=== PATIENT | male | born 1950 | race Caucasian/White ===

== ENCOUNTER 2018-07-10 12:28 | Emergency (ER) | payer MEDICARE, OTHER ==
[~2018-07-10] VITALS: Ht 188 cm; Wt 127.0 kg
[~2018-07-10 12:28] MED LIST: ALLO300T PO; ASPI-496 PO; FURO20TA3 PO; HYDR-3653 PO; INSU100V8 SQ; LOSA50TA14 PO; METO50TA82 PO; ROSU20TA PO; VALS1TAB24 PO
--- NOTE | 2018-07-10 12:44 | NUR ---
EKG TAKEN BY THIS RN, REVIEWED BY EDMD.
[2018-07-10] MEDS ORDERED: AMLO2.5T5 PO (12:48)
[2018-07-10] MEDS ORDERED: GLIP5TAB10 PO (12:49)
--- NOTE | 2018-07-10 13:12 | NUR ---
preceptor note: pt biba, report taken from ems. pt presents to ED with c/o dizziness starting this am with associated nausea and vomiting. 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 pt a&o x 4, neuro intact, equal grasp bilaterally, face symmetrical, no drift, equal (5/5) strength to all extremities. all monitors in place. pt seen and examined by VERA Enamorado. family at bedside. awaiting head ct and labwork at this time.
[2018-07-10] MEDS ORDERED: MECLIZINE CHEWABLE 25 MG TAB ONE (13:15)
[2018-07-10 13:28] LABS: BASOPHILS # (AUTO) 0.08 x10^3/uL (0-0.1); BASOPHILS % (AUTO) 1 % (0-1); EOSINOPHILS # (AUTO) 0.15 x10^3/uL (0-0.4); EOSINOPHILS % (AUTO) 1 % (1-7); LYMPHOCYTES # (AUTO) 1.45 x10^3/uL (1-3.4); LYMPHOCYTES % (AUTO) 10 % (22-44); MD NO; MEAN CORPUSCULAR HEMOGLOBIN 31.4 pg (27.5-34.5); MEAN CORPUSCULAR HGB CONC 33.5 g/dL (33.2-36.2); MEAN CORPUSCULAR VOLUME 93.8 fL (81-97); MONOCYTES # (AUTO) 0.66 x10^3/uL (0.2-0.8); MONOCYTES % (AUTO) 4 % (2-9); NEUTROPHILS # (AUTO) 12.81 x10^3/uL (1.8-6.8); NEUTROPHILS % (AUTO) 85 % (42-75); PLATELET COUNT 268 x10^3/uL (130-400); RED BLOOD COUNT 4.52 x10^6/uL (4.38-5.82); RED CELL DISTRIBUTION WIDTH 14.6 % (9.4-14.8)
[2018-07-10] MEDS ORDERED: MECLIZINE CHEWABLE 25 MG TAB PO ONE (13:30)
[2018-07-10 13:39] LABS: ALBUMIN 3.3 g/dL (3.4-5.0); ANION GAP 5 mmol/L (5-15); CALCIUM 8.5 mg/dL (8.5-10.1); CHLORIDE 108 mmol/L (98-107); CREATININE 1.83 mg/dL (0.7-1.3)
--- NOTE | 2018-07-10 13:50 | NUR ---
pt in ct now.
--- NOTE | 2018-07-10 13:54 | NUR ---
PT BACK TO ROOM FROM CT NOW.
[2018-07-10 14:00] LABS: TROPONIN I < 0.015 ng/mL (0.000-0.045)
--- NOTE | 2018-07-10 14:13 | NUR ---
PT HAS ROOM AIR SPO2 87-90%, 2L OXYGEN APPLIED VIA NC. PT'S STATES "HE SNORES AND I THINK HE HAS SLEEP APNEA." RESPS EVEN AND UNLABORED. VERA LIMA NOTIFIED.
--- NOTE | 2018-07-10 14:20 | NUR ---
VERA LIMA AT BEDSIDE TO EXPLAIN RESULTS AND POC
--- NOTE | 2018-07-10 14:45 | NUR ---
PT RESTING ON GURNEY, RESPS EVEN AND UNLABORED. PT A&OX4, NSR ON FISH SEINER WITH NO ECTOPY. PT TO HAVE MRI, PT AND FAMILY AWARE OF POC. PT DENIES PAIN, DENIES NAUSEA, NO VOMITING DURING THIS VISIT.
--- NOTE | 2018-07-10 14:53 | NUR ---
PT REPORTS HE HAS ABD STENT X 3. STENT CARD PROVIDED. MRI CALLED AND REVIEWED STENT TYPE/INFORMATION INCLUDED ON CARD. PER MRI, THESE STENTS ARE MRI COMPATIBLE. MRI TO COLLECT PT SHORTLY.
--- NOTE | 2018-07-10 14:57 | NUR ---
PT TO MRI
--- NOTE | 2018-07-10 15:31 | NUR ---
all results back, chart up for recheck. awaiting MD and dispo.
--- NOTE | 2018-07-10 15:32 | NUR ---
edmd at bedside and explaining results at this time.
--- NOTE | 2018-07-10 15:47 | NUR ---
EDMD instructed RN to ambulate pt while monitoring spo2. pt ambulated down hallway and back with RN and spo2 monitoring. Pt's spo2 ranged from 89-91% on room air while ambulating, now 93% on room air while sitting. pt denies sob. resps even and unlabored. pt states dizziness improved s/p meclizine and did not worsen when ambulating. gait is steady and unassisted. MD Moyer updated with RN observations. Pt back in [facility], all montiors reapplied. nsr on quality assurance monitor body with no ectopy.
[2018-07-10 16:14] VITALS: BP 130/86
--- NOTE | 2018-07-10 16:15 | NUR ---
pt and family given dc instructions and script. pt educated regarding meclizine dc rx. pt a&ox4, resps even and unlabored, nadn at dc. pt amb to dc desk with steady gait.
== END 2018-07-10 16:16 | disposition home or self-care (01) ==
LOC: ED 14:38
DX: R42 Dizziness and giddiness (principal); R11.2 Nausea with vomiting, unspecified; I10 Essential (primary) hypertension; E11.9 Type 2 diabetes mellitus without complications; Z87.891 Personal history of nicotine dependence
CPT/HCPCS: 36415; 70450; 70551; 71045; 80048; 82040; 84484; 85025; 93005; 99284

== ENCOUNTER 2020-06-13 21:48 | Emergency (ER) | payer MEDICARE, OTHER ==
[~2020-06-13] VITALS: Ht 188 cm; Wt 134.1 kg
[~2020-06-13 21:48] MED LIST changes: +AMLO2.5T5 PO; +GLIP5TAB10 PO; -ROSU20TA PO; +ROSU20TA2 PO; -VALS1TAB24 PO; +VALS1TAB25 PO
--- NOTE | 2020-06-13 22:03 | NUR ---
BIB EMS. PT STATES HAVING RIGHT SIDED BUTT PAIN AND RIGHT LEG PAIN WELL. PT STATES TAKING 4 ADVIL AND 4 ASPRIN PRIOR TO EMS ARIVAL. EMS PUT IN IV AND GAVE ABOUT 250 ML NS. BLOOD SUGAR WAS 158 WHEN CHECKED BY EMS. PT ON MONITORS, ERP AT BEDSIDE TO EVALUATE. PT DENIES PAIN AT THIS TIE
--- NOTE | 2020-06-13 22:15 | NUR ---
PT TO XRAY
[2020-06-13 22:40] LABS: BASOPHILS % (AUTO) 1 % (0-1); EOSINOPHILS % (AUTO) 1 % (1-7); LYMPHOCYTES % (AUTO) 10 % (22-44); MEAN CORPUSCULAR HEMOGLOBIN 31.5 pg (27.5-34.5); MEAN CORPUSCULAR HGB CONC 33.2 g/dL (33.2-36.2); MEAN PLATELET VOLUME 10.4 fL (7.4-10.4); MONOCYTES % (AUTO) 7 % (2-9); NEUTROPHILS % (AUTO) 81 % (42-75); PLATELET COUNT 205 x10^3/uL (130-400); RED BLOOD COUNT 4.35 x10^6/uL (4.38-5.82); RED CELL DISTRIBUTION WIDTH 14.3 % (9.4-14.8)
[2020-06-13 22:45] LABS: MD NO
[2020-06-13 22:53] LABS: ALANINE AMINOTRANSFERASE 23 U/L (12-78); ALBUMIN 3.5 g/dL (3.4-5.0); ANION GAP 6 mmol/L (5-15); CALCIUM 8.2 mg/dL (8.5-10.1); CHLORIDE 112 mmol/L (98-107); CREATININE 2.12 mg/dL (0.7-1.3)
[2020-06-13 22:55] LABS: ALKALINE PHOSPHATASE 72 U/L (45-117); BILIRUBIN,TOTAL 0.5 mg/dL (0.2-1.0); TOTAL PROTEIN 7.3 g/dL (6.4-8.2)
[2020-06-13 23:47] LABS: MICROSCOPIC INDICATED
--- NOTE | 2020-06-13 23:54 | NUR ---
PT WAS ABLE YTO AMBULATE TO RSTROOM AND BACK WITHOUT DIFFICULTY OR ASSISTANCE. PT STEADY AND STATES FEELING BETTER AND READY TO GO HOME
[2020-06-14 00:17] VITALS: BP 110/61
[2020-06-14] MEDS ORDERED: CEFDINIR 300 MG CAPSULE ONE (00:44)
[2020-06-14] MEDS ORDERED: CEFDINIR 300 MG CAPSULE PO ONE (01:00)
== END 2020-06-14 01:32 | disposition home or self-care (01) ==
LOC: ED 23:54
DX: N30.01 Acute cystitis with hematuria (principal); R94.31 Abnormal electrocardiogram [ECG] [EKG]; I10 Essential (primary) hypertension; E11.9 Type 2 diabetes mellitus without complications; E78.00 Pure hypercholesterolemia, unspecified; Z87.891 Personal history of nicotine dependence
CPT/HCPCS: 36415; 71045; 72110; 80053; 81001; 85025; 87086; 93005; 99285

== ENCOUNTER 2020-06-20 09:08 | Emergency (ER) | payer MEDICARE, OTHER ==
[~2020-06-20] VITALS: Ht 188 cm; Wt 131.1 kg
[2020-06-20] MEDS ORDERED: HYDROcodone/APAP 5/325 TABLET PO ONE (10:00)
[2020-06-20] MEDS ORDERED: METHOCARBAMOL 750 MG TABLET PO ONE (10:00)
[2020-06-20] MEDS ORDERED: METHOCARBAMOL 750 MG TABLET ONE (10:02)
[2020-06-20] MEDS ORDERED: HYDROcodone/APAP 5/325 TABLET ONE (10:03)
--- NOTE | 2020-06-20 10:29 | NUR ---
PT ATTEMPTED UA WITH NO SUCCESS.
--- NOTE | 2020-06-20 10:35 | NUR ---
UA COLLECTED AND SENT TO LAB.
[2020-06-20 10:42] LABS: BASOPHILS % (AUTO) 1 % (0-1); EOSINOPHILS % (AUTO) 4 % (1-7); LYMPHOCYTES % (AUTO) 19 % (22-44); MEAN CORPUSCULAR HEMOGLOBIN 31.6 pg (27.5-34.5); MEAN CORPUSCULAR HGB CONC 33.1 g/dL (33.2-36.2); MEAN PLATELET VOLUME 10.8 fL (7.4-10.4); MONOCYTES % (AUTO) 8 % (2-9); NEUTROPHILS % (AUTO) 69 % (42-75); PLATELET COUNT 276 x10^3/uL (130-400); RED BLOOD COUNT 4.87 x10^6/uL (4.38-5.82); RED CELL DISTRIBUTION WIDTH 14.7 % (9.4-14.8)
[2020-06-20 10:50] LABS: ALBUMIN 3.7 g/dL (3.4-5.0); ANION GAP 9 mmol/L (5-15); CALCIUM 8.9 mg/dL (8.5-10.1); CHLORIDE 113 mmol/L (98-107); CREATININE 2.83 mg/dL (0.7-1.3); MD NO
[2020-06-20 11:01] LABS: MICROSCOPIC INDICATED
[2020-06-20 11:26] VITALS: BP 129/94
[2020-06-20] MEDS ORDERED: CEFTRIAXONE 1,000 MG IM ONE (11:30)
[2020-06-20] MEDS ORDERED: LIDOCAINE-MPF 1%, 2ML ONE (11:32)
[2020-06-20] MEDS ORDERED: CEFTRIAXONE 1,000 MG ONE (11:33)
== END 2020-06-20 11:50 | disposition home or self-care (01) ==
LOC: ED 10:40
DX: M54.41 Lumbago with sciatica, right side (principal); I12.9 Hypertensive chronic kidney disease with stage 1 through stage 4 chronic kidney disease, or unspecified chronic kidney disease; N18.2 Chronic kidney disease, stage 2 (mild); N30.00 Acute cystitis without hematuria; D72.829 Elevated white blood cell count, unspecified; E11.65 Type 2 diabetes mellitus with hyperglycemia; E11.22 Type 2 diabetes mellitus with diabetic chronic kidney disease; E78.00 Pure hypercholesterolemia, unspecified; Z87.891 Personal history of nicotine dependence
CPT/HCPCS: 36415; 80048; 81001; 82040; 85025; 87086; 96372; 99284; J0696; J7512

== ENCOUNTER → 2020-08-25 | Outpatient (CLI) | payer MEDICARE, OTHER | END | disposition home or self-care (01) | LOC: CFH 07:44 | PROVIDERS: ATTEND Family Medicine | DX: S22.000A Wedge compression fracture of unspecified thoracic vertebra, initial encounter for closed fracture (principal); M85.88 Other specified disorders of bone density and structure, other site; X58.XXXA Exposure to other specified factors, initial encounter; Y93.89 Activity, other specified; Y92.89 Other specified places as the place of occurrence of the external cause; Y99.8 Other external cause status | CPT/HCPCS: 77080 ==